=== PATIENT | male | born 1980 | race Caucasian/White ===

== ENCOUNTER 2017-01-28 16:56 | Emergency (ER) | payer OTHER ==
[~2017-01-28] VITALS: Ht 182.9 cm; Wt 86.6 kg
--- NOTE | ~2017-01-28 | CR72 ---
[facility]. [facility] A Service of [facility] RADIOLOGY TEXT RESULTS PATIENT: MURTAZA SUBRAMANIAN LOCATION: SED : 78 UNIT #: [id number] AGE: [address]: ePte Monroe MD SEX: M ORDER DR: [id number] [place] [id number] E MR#: [id number] Acc #: [id number] NAME: MURTAZA SUBRAMANIAN : 1980 SEX: M STUDY DATE/TIME: 01/28/2017 18:16 UNIT: SED ROOM: STUDY DESCRIPTION: CR Chest Single View Portable Attending Physician: Pete Monroe M.D. Ordering Physician: Lakshmi Man M.D. Primary Care Physician: No Primary Care Physician MEDICAL IMAGING REPORT This report is preliminary unless electronic signature is present. EXAM Portable chest 01/28/2017 HISTORY A 36-year-old male with chest pain beginning today. COMPARISON STUDIES 01/25/2008 FINDINGS Frontal chest demonstrates clear lungs. No pleural effusion or pneumothorax. Heart size and mediastinum are normal. Pulmonary vasculature normal. IMPRESSION No acute cardiopulmonary findings Dictated by... Catrachito Martinez M.D. THIS IS AN ELECTRONICALLY VERIFIED REPORT Catrachito Martinez M.D. at 01/29/2017 2:25 PM SATHISH/kishore TD: 01/29/2017 05:40 JOB #: [id number] MEDICAL IMAGING REPORT Page 1 of 1
--- NOTE | ~2017-01-28 | EKG ---
PATIENT: MURTAZA SUBRAMANIAN UNIT #: [id number] Ventricular Rate: 65 BPM Atrial Rate: 65 BPM P-R Interval: 140 ms QRS Duration: 82 ms Q-T Interval: 394 ms QTC Calculation(Bezet): 409 ms P [place]: 63 degrees Calculated R [place]: 65 degrees Calculated T [place]: 62 degrees Diagnosis Line: Normal sinus rhythm Diagnosis Line: Normal ECG Early repolarization Diagnosis Line: No previous ECGs available Diagnosis Line: Confirmed by DANA NAM MD ([id number]) on 01/31/2017 Diagnosis Line: 7:01:30 PM INTERPRETING MD: VIV MERCHANT
[~2017-01-28 16:56] MED LIST: CERTAGEN PO; FLEXERIL PO; FLEXERIL10 MG PO; IBUPROFEN PO; KEFLEX PO; KETOPROFEN PO; LORTAB 5/500 TA1 TA1 PO; MEDROL DOSEPAK4 MG PO; MEDROL PO; MEDROL4 MG/DOSE- PO; NAPROXEN500 M1 PO; NO MEDICATIONS; ORUDIS75 M1 DOB; ORUDIS75 M1 PO; VICODIN 5/500 T1 TAB PO; VICODIN PO; VOLTAREN75 MG PO
[2017-01-28 17:37] LABS: BASOPHIL# 0.1 X10e3 (0-0.3); BASOPHIL% 1.1 % (0-2.5); EOSINOPHIL# 0.1 X10e3 (0-0.7); HEMATOCRIT 44.8 % (38.0-50.0); HEMOGLOBIN 15.3 gm/dL (13.0-16.0); LYMPHOCYTE# 1.2 X10e3 (1.0-3.5); LYMPHOCYTE% 16.2 % (17.0-45.0); MEAN CORPUSCULAR HEMOGLOBIN 29.4 PG (28-34); MEAN CORPUSCULAR HGB CONC 34.1 g/dL (30-36); MEAN PLATELET VOLUME 8.7 FL (6.5-11.5); MONOCYTE# 0.6 X10e3 (0-1.0); MONOCYTE% 8.6 % (3.0-12.0); NEUTROPHIL# 5.4 X10e3 (1.5-7.1); NEUTROPHIL% 72.1 % (40-75); PLATELET COUNT 211 X10e3 (140-420); RED BLOOD COUNT 5.21 X10e (3.90-5.60); RED CELL DISTRIBUTION WIDTH 13.4 % (11.0-15.5); WHITE BLOOD COUNT 7.5 X10e3 (4.0-10.5)
[2017-01-28 17:45] LABS: POC - CKMB 1.1 ng/mL (0.0-7.9); POC - MYOGLOBIN 61.5 ng/mL (0.0-169.0); POC - TROPONIN <0.05 ng/mL (<=0.05)
[2017-01-28 17:55] LABS: DIFF IND NO
[2017-01-28 17:57] LABS: INR 1.1; PROTHROMBIN TIME (PATIENT) 12.4 SECONDS (9.5-12.4)
[2017-01-28 18:08] LABS: ALBUMIN SERUM 4.1 g/dL (3.5-5.0); BILIRUBIN, DIRECT 0.1 mg/dL (0.0-0.2); BILIRUBIN,INDIRECT 0.3 mg/dL (0.0-0.9); BILIRUBIN,TOTAL 0.4 mg/dL (0.2-2.0); BUN/CREATININE RATIO 13.33; CALCIUM SERUM 8.9 mg/dL (8.4-10.2); CREATININE SERUM 0.9 mg/dL (0.6-1.4); GLOM FILT RATE Estimated 108.7 mL/min (>60); POTASSIUM 4.1 mmol/L (3.5-5.1)
[2017-01-28 18:09] LABS: PARTIAL THROMBOPLASTIN TIME 31.3 SECONDS (25.6-38.1)
[2017-01-28 19:20] LABS: POC - CKMB 1.4 ng/mL (0.0-7.9); POC - MYOGLOBIN 40.1 ng/mL (0.0-169.0); POC - TROPONIN <0.05 ng/mL (<=0.05)
== END 2017-01-28 19:45 | disposition home or self-care (01) ==
LOC: SED 16:56
PROVIDERS: Emergency Medicine; Student in an Organized Health Care Education/Training Program
DX: R07.89 Other chest pain (principal); R05 Cough; F17.200 Nicotine dependence, unspecified, uncomplicated; Z98.890 Other specified postprocedural states
CPT/HCPCS: 36415; 71010; 80048; 80076; 82553; 83874; 83880; 84484; 85025; 85610; 85730; 93005; 94640; 99285